=== PATIENT | male | born 1950 | race Caucasian/White ===

== ENCOUNTER 2017-09-03 09:49 | Outpatient (CLI) | payer OTHER | END 2017-09-03 09:50 | disposition home or self-care (01) | LOC: BICULT 09:49 | PROVIDERS: ATTEND Specialist | DX: R42 Dizziness and giddiness (principal); I70.90 Unspecified atherosclerosis | CPT/HCPCS: 93880 ==

== ENCOUNTER 2018-05-27 07:25 | Outpatient (CLI) | payer MEDICARE ==
[2018-05-27] MEDS ORDERED: ISOVUE-370 76%-LOCM 1 ML ONE (11:58)
--- NOTE | 2018-05-27 12:46 | CT ---
CHEST CT SCAN WITH IV CONTRAST: History: 67-year-old male with history of nodule. Comparison: Chest CTA 04-04-17. FINDINGS: There is a very small, 0.3 cm diameter subpleural nodule in the lateral aspect of the right upper lob e, stable from a prior 04-04-17 study. Borderline dilatation of the aortic root at 3.9 cm. No pleural effusion or pericardial effusion. Smal l stable right upper pole renal cyst. IMPRESSION: 0.3 cm diameter small stable nodule in the lateral aspect of the right upper lobe. No evidence for ot her significant process in the chest. No additional follow up necessarily needs to be performed for this small stable nodule, unless the pa tient has a smoking history that would warrant yearly follow up low dose chest CT scan follow up. POS: DAREK
== END 2018-05-27 07:26 | disposition home or self-care (01) ==
LOC: BICCT 07:25
PROVIDERS: ATTEND Internal Medicine Cardiovascular Disease
DX: R91.1 Solitary pulmonary nodule (principal); I35.1 Nonrheumatic aortic (valve) insufficiency; I71.2 Thoracic aortic aneurysm, without rupture
CPT/HCPCS: 71260; 82565

== ENCOUNTER 2019-11-26 13:10 | Outpatient (CLI) | payer MEDICARE ==
--- NOTE | 2019-11-26 15:15 | MRI ---
Exam: Brain MRI with and without contrast HISTORY: Balance problems. Frequent falls. COMPARISON: 06/07/2011 FINDINGS: Hemorrhage: No hemorrhage Calvarium: Appropriate T1 marrow signal intensity Midline brain parenchyma: Unremarkable Cerebrum:No parenchymal mass, mass effect or midline shift. Brain volume, age-appropriate. Cortical g ray-white matter differentiation is preserved. No hydrocephalus Redemonstration of multiple T2 and FLAIR white matter hyperintensities, similar to the previous exami nation. Ventricles: No evidence of hydrocephalus. Sinuses and mastoid air cells: Mucosal thickening involving the paranasal sinuses. Adequate mastoid a ir cell aeration. Diffusion: Central arterial flow is maintained. Absent restricted diffusion. Postcontrast images:No positive contrast enhancement the brain parenchyma Cranial nerves: Symmetric signal intensity of the 7th/8th cranial nerve complexes. No abnormal signal intensity of the visualized internal auditory canals and inner ear structures. Symmetric signal intensity of the 5th cranial nerve complexes. No abnormal signal intensity. No abnor mal signal intensity in the left and right Meckel's caves. IMPRESSION: 1. Stable extensive T2 and FLAIR white matter hyperintensities. 2. No abnormal enhancement with regards to the 5th cranial nerves. 2. No abnormal enhancement with regards to the internal artery canal, inner ear and 7th/8th cranial n erve complexes Transcribed Date/Time: 11/26/2019 3:39 PM
== END 2019-11-26 13:11 | disposition home or self-care (01) ==
LOC: TBSIIMAG 13:10
PROVIDERS: ATTEND Neurological Surgery
DX: R26.89 Other abnormalities of gait and mobility (principal); R29.6 Repeated falls; R90.89 Other abnormal findings on diagnostic imaging of central nervous system
CPT/HCPCS: 70553; 82565

== ENCOUNTER 2019-12-29 | Outpatient (CLI) | payer MEDICARE | END 2019-12-29 07:18 | disposition home or self-care (01) | DX: I71.2 Thoracic aortic aneurysm, without rupture (principal); I77.810 Thoracic aortic ectasia; R91.1 Solitary pulmonary nodule ==

== ENCOUNTER 2023-06-04 13:47 | Outpatient (CLI) | payer MEDICARE | END 2023-06-04 13:48 | disposition home or self-care (01) | LOC: SCSMRI 13:47 | PROVIDERS: ATTEND Physician Assistant | DX: G50.0 Trigeminal neuralgia (principal); J34.89 Other specified disorders of nose and nasal sinuses; G50.8 Other disorders of trigeminal nerve | CPT/HCPCS: 70553 ==

== ENCOUNTER 2024-07-10 12:30 | Outpatient (CLI) | payer MEDICARE | END 2024-07-10 12:31 | disposition home or self-care (01) | LOC: PET 12:30 | PROVIDERS: ATTEND Urology | DX: C61 Malignant neoplasm of prostate (principal); N42.89 Other specified disorders of prostate | CPT/HCPCS: 78815; A9552; A9595 ==